=== PATIENT | male | born 1960 | race Caucasian/White ===

== ENCOUNTER → 2018-07-01 12:34 | Outpatient (CLI) | payer OTHER, SELFPAY ==
[2018-07-01 14:53] LABS: Amphetamine/Metha Screen,Urine Negative ng/mL (<1000); Barbiturates Screen,Urine Negative ng/mL (<200); Benzodiazepines Screen,Urine Positive ng/mL (<200); Cannabinoid Screen,Urine Negative ng/mL (<50); Cocaine Screen,Urine Negative ng/mL (<300); Methadone Screen,Urine Negative ng/mL (<300); Opiate Screen,Urine Negative ng/mL (<300); Phencyclidine Screen,Urine Negative ng/mL (<25)
== END ==
PROVIDERS: Visit Provider Internal Medicine
DX: I25.10 Atherosclerotic heart disease of native coronary artery without angina pectoris (principal); E78.49 Other hyperlipidemia; I11.9 Hypertensive heart disease without heart failure
CPT/HCPCS: 80305

== ENCOUNTER → 2018-12-30 12:04 | Outpatient (CLI) | payer OTHER, SELFPAY ==
[2018-12-30 13:44] LABS: Amphetamine/Metha Screen,Urine Negative ng/mL (<1000); Barbiturates Screen,Urine Negative ng/mL (<200); Benzodiazepines Screen,Urine Positive ng/mL (<200); Cannabinoid Screen,Urine Negative ng/mL (<50); Cocaine Screen,Urine Negative ng/mL (<300); Methadone Screen,Urine Negative ng/mL (<300); Opiate Screen,Urine Negative ng/mL (<300); Phencyclidine Screen,Urine Negative ng/mL (<25)
== END ==
PROVIDERS: Visit Provider Internal Medicine
DX: F11.90 Opioid use, unspecified, uncomplicated (principal); F41.9 Anxiety disorder, unspecified; E78.5 Hyperlipidemia, unspecified; I11.9 Hypertensive heart disease without heart failure; I25.10 Atherosclerotic heart disease of native coronary artery without angina pectoris
CPT/HCPCS: 80305

== ENCOUNTER → 2019-08-06 09:13 | Outpatient (CLI) | payer OTHER, SELFPAY ==
[2019-08-06 18:12] LABS: Barbiturates Screen,Urine Negative ng/ml (<200)
[2019-08-06 18:13] LABS: Benzodiazepines Screen,Urine Positive ng/ml (<200)
[2019-08-06 18:14] LABS: Cannabinoid Screen,Urine Negative ng/ml (<50)
[2019-08-06 18:15] LABS: Cocaine Screen,Urine Negative ng/ml (<300)
[2019-08-06 18:16] LABS: Opiate Screen,Urine Negative ng/ml (<300); Phencyclidine Screen,Urine Negative ng/ml (<25)
[2019-08-06 18:26] LABS: Amphetamine/Metha Screen,Urine Negative ng/ml (<1000)
[2019-08-06 19:02] LABS: Methadone Screen,Urine Negative ng/ml (<300)
== END ==
PROVIDERS: Visit Provider Nurse Practitioner Family
DX: Z79.899 Other long term (current) drug therapy (principal)
CPT/HCPCS: 80305

== ENCOUNTER → 2020-03-22 12:39 | Outpatient (CLI) | payer BC, SELFPAY ==
--- NOTE | 2020-03-22 12:42 | CA_ITS ---
APPROVED REPORT EXAM: Comprehensive 2D, Doppler, and color-flow Echocardiogram Cnc Mechanic: DARLEEN BURROWS Ht: 6 ft 1 in Wt: 201lbs BSA: 2.16 BP: 122/78 mmHg Indications: soa, COPD, Laryngeal CA, CAD Echo Enhancing Agent Comments: Technically difficult exam due to lung impedance 2D Dimensions Aortic Root 2.74 cm Left Atrium 3.19 cm LVOT 1.93 cm (M/F) 1.5-2.5 M-Mode Dimensions RVDd 1.75 cm (0.9-2.6) LA Diam 3.83 cm (1.9-4.0) LVDd 4.85 cm (3.5-5.7) Ao Diam 2.86 cm (2.0-3.7) LVDs 3.01 cm (3.5-5.7) IVSd 0.91 cm (0.6-1.1) PWd 0.75 cm (0.6-1.1) EF (Teich) 66.00% EPSs 0.50 cm FS 36.40% EDV (Teich) 103.90 mL ESV (Teich) 35.30 mL LV Diastology E Decel Time 220.00 (160-240 msec) E/A Ratio 0.96 MED E' 6.20 (< 7 cm/sec) MED A' 9.20 cm/s E'/MED E' Ratio 12.95 (>14) LAT E' 9.00 (<10 cm/sec) LAT A' 11.00 cm/s E/LAT E' Ratio 8.92 (>14) Aortic Valve AO Peak GR. 6.00 mmHg Mitral Valve MV A Velocity 83.00 (40-130 cm/s) E/A Ratio 0.96 MV Decel. Time 220.00 (160-240 ms) Tricuspid Valve TR P. Velocity 122.00 cm/s Left Ventricle Left atrium is mildly enlarged, left ventricle is normal size, mild concentric left ventricular hypertrophy, visually estimated ejection fraction 55% with no regional wall motion abnormality, grade 1 diastolic dysfunction seen without tissue Doppler evidence of raise left atrial pressure. Right Ventricle Right atrium and right ventricle are normal size and contractility. Aortic Valve Aortic valve is minimally thickened and fibrosed, there is no aortic stenosis or aortic insufficiency. Mitral Valve Mitral valve is grossly normal, there is mild mitral regurgitation. Tricuspid Valve Tricuspid valve is grossly normal, there is mild tricuspid regurgitation, tricuspid regurgitation jet velocity is inadequate for calculation of the right ventricular systolic pressure. Pulmonic Valve Pulmonic valve is poorly visualized. Great Vessels Aortic root is normal size. Pericardium No significant pericardial effusion noted. Conclusion 1. Mildly enlarged left atrium, normal left ventricular size, mild concentric left ventricular hypertrophy, visually estimated ejection fraction 55% with no regional wall motion abnormality, grade 1 diastolic dysfunction seen without tissue Doppler evidence of raise left atrial pressure. 2. Mild mitral and tricuspid regurgitation. 3. No significant pericardial effusion noted. Electronically signed by : Ervin Dickinson, 03/23/2020 06:07:30
== END ==
PROVIDERS: PCP Internal Medicine; Visit Provider Internal Medicine
DX: R06.02 Shortness of breath (principal)
CPT/HCPCS: 93306

== ENCOUNTER → 2021-05-02 12:52 | Outpatient (CLI) | payer OTHER, SELFPAY ==
[2021-05-02 13:02] LABS: Microscopic, Urine URINE MICROSCOPIC (MICROSCOPIC)
--- NOTE | 2021-05-02 13:18 | XR_ITS ---
FINAL REPORT CLINICAL HISTORY: CAD, HTN FINDINGS: 2 views of the chest were obtained . The heart is normal in size. The mediastinum is within normal limits. The lungs are clear. There is no pneumothorax. Osseous structures are unremarkable. IMPRESSION: No acute cardiopulmonary process. Reviewed, Interpreted and Dictated by Tutu Quinones MD Transcribed by Emma Beckwith Authenticated by Tutu Quinones MD on 05/02/2021 02:58:[address] [facility]
[2021-05-02 13:26] LABS: Basophils # 0.1 K/mm3 (0-0.2); Basophils % 0.9 % (0.1-2.0); Eosinophils # 0.1 K/mm3 (0.0-0.4); Eosinophils % 1.6 % (0.1-12.0); Hematocrit 48.2 % (42.0-52.0); Hemoglobin 16.8 g/dL (14.1-18.0); Lymphocytes # 2.6 K/mm3 (0.7-4.5); Lymphocytes % 32.5 % (10-50); Mean Corpuscular HGB Conc 34.8 g/dL (31.8-35.4); Mean Corpuscular Hemoglobin 33.1 pg (27.0-31.2); Mean Corpuscular Volume 94.9 fl (80-94); Mean Platelet Volume 7.2 fl (7.4-10.4); Monocytes # 0.5 K/mm3 (0.1-1.0); Monocytes % 6.6 % (1.7-9.3); Neutrophils # 4.7 K/mm3 (1.8-7.8); Neutrophils % 58.4 % (37.0-80.0); Platelet Count 249 K/mm3 (142-424); Red Blood Count 5.07 M/mm3 (4.60-6.20); Red Cell Distribution Width 14.1 % (11.5-17.5); White Blood Count 8.1 K/mm3 (4.8-10.8)
[2021-05-02 13:49] LABS: Chloride 100 mmol/L (98-107); Sodium 139 mmol/L (136-145)
[2021-05-02 13:50] LABS: Potassium 3.4 mmoL/L (3.5-5.1)
[2021-05-02 13:52] LABS: Alanine Aminotransferase 34 U/L (12-78); Albumin Level 4.6 g/dl (3.5-5.0); Alkaline Phosphatase 85 U/L (38-126); Anion Gap 7.4 mEq/L (5-15); Aspartate Amino Transferase 35 U/L (17-59); Bilirubin,Direct 0.3 mg/dl (0.0-0.4); Bilirubin,Indirect 0.5 mg/dL (0.0-0.9); Bilirubin,Total 0.8 mg/dl (0.2-1.3); Bilirubin,Unconjugated 0.5 mg/dL (0.0-1.1); Blood Urea Nitrogen 8 mg/dl (9-20); Calcium 8.4 mg/dl (8.4-10.2); Carbon Dioxide 35 mmol/L (22.0-30.0); Estimated Glomerular Filt Rate 76 ml/min (>60); GFR (African American) 92 ML/MIN (>60); Glucose 95 mg/dl (74-100); Total Protein,Serum 7.6 g/dl (6.3-8.2)
[2021-05-02 14:09] LABS: Free T4 (Free Thyroxine) 1.09 ng/dl (0.78-2.19)
[2021-05-02 14:23] LABS: Thyroid Stimulating Hormone 1.94 uIU/mL (0.465-4.68)
[2021-05-02 19:18] LABS: Appearance,Urine CLEAR (Clear); Bilirubin,Urine Negative (Negative); Blood, Urine TRACE-I (Negative); Color,Urine YELLOW (Yellow); Glucose,Urine (UA) Negative (Negative); Ketones,Urine Negative (Negative); Leukocyte Esterase,Urine Negative (Negative); Nitrate,Urine Negative (Negative); PH,Urine 7.5 (5.0-8.5); Protein,Urine Negative (Negative); Specific Gravity, Urine 1.015 (1.005-1.030); Urobilinogen,Urine 0.2 EU/dl (0.2)
[2021-05-02 20:53] LABS: Bacteria,Urine Trace /lpf; Squamous Epithelial Cell,Urine Occasional #/hpf (0-5); WBC,Urine Occasional #/hpf (0-3)
== END ==
PROVIDERS: PCP Internal Medicine; Visit Provider Internal Medicine
DX: R06.02 Shortness of breath (principal); I25.10 Atherosclerotic heart disease of native coronary artery without angina pectoris; I11.9 Hypertensive heart disease without heart failure; C32.9 Malignant neoplasm of larynx, unspecified; E78.2 Mixed hyperlipidemia; F41.9 Anxiety disorder, unspecified
CPT/HCPCS: 36415; 71046; 80048; 80076; 81001; 84439; 84443; 85025

== ENCOUNTER → 2021-05-17 07:55 | Outpatient (CLI) | payer OTHER, SELFPAY ==
--- NOTE | 2021-05-17 07:57 | CA_ITS ---
FINAL REPORT TECHNIQUE: Grayscale, color Doppler and duplex Doppler ultrasound of the kidneys, aorta and renal arteries was performed. Multiple velocities were measured. CLINICAL HISTORY: HTN, Hematiria FINDINGS: Aorta velocity: 85 cm/sec Right kidney: 12.0 cm. No evidence of hydronephrosis or mass. Right intrarenal RI: 0.72, borderline. Right renal artery velocity: 129 cm/sec. Right RAR (Renal artery-Aortic Ratio): 1.5 Left Kidney: 12.4 cm. No evidence of hydronephrosis or mass. Left intrarenal RI: 0.66, normal. Left renal artery velocity: 165 cm/sec. Left RAR (Renal Artery-Aortic Ratio): 2.0 IMPRESSION: No evidence of significant renal artery stenosis. CT angiogram or postcontrast MR angiogram would be more sensitive for evaluation of possible renal artery stenosis. Reviewed, Interpreted and Dictated by Keshawn Bowles III, MD Transcribed by Sarah Vivas Authenticated by Keshawn Bowles III, MD on 05/17/2021 11:09:02 AM [facility]
== END ==
PROVIDERS: PCP Internal Medicine; Visit Provider Nurse Practitioner Family
DX: R06.02 Shortness of breath (principal); I25.10 Atherosclerotic heart disease of native coronary artery without angina pectoris; I11.9 Hypertensive heart disease without heart failure; C32.9 Malignant neoplasm of larynx, unspecified; E78.2 Mixed hyperlipidemia; F41.9 Anxiety disorder, unspecified
CPT/HCPCS: 93976